=== PATIENT | female | born 1955 | race Caucasian/White ===

== ENCOUNTER 2016-11-06 08:10 | Observation (INO) | payer OTHER ==
[~2016-11-06] VITALS: Ht 167.6 cm; Wt 55.2 kg
[~2016-11-06 08:10] MED LIST: LISI10TA3 PO; NALOXONE HCL 0.4 MG/ML AMP IV PUSH PRN; SODIUM CHLORIDE 0.9% FLUSH 10 ML FLUSH IV FLUSH PRN; hydrALAZINE HCL 20 MG/ML VIAL IV PUSH PRN
[2016-11-06 08:45] VITALS: BP 175/101; PULSE 81; RESP 18; TEMP 98.1; O2SAT 100
[2016-11-06] MEDS: SODIUM CHLORIDE 0.9% FLUSH 10 ML FLUSH IV FLUSH SCH ×2 (09:00→21:24)
[2016-11-06] MEDS ORDERED: DOCUSATE SODIUM 100 MG CAP PO PRN (10:00)
[2016-11-06] MEDS ORDERED: TEMAZEPAM 15 MG CAP PO PRN (10:00)
[2016-11-06] MEDS ORDERED: cloNIDine HCL 0.1 MG TAB PO PRN (10:00)
[2016-11-06] MEDS ORDERED: LISINOPRIL 10 MG TAB PO SCH (10:00)
[2016-11-06] MEDS ORDERED: ONDANSETRON HCL 4 MG/2 ML VIAL IV PUSH PRN (10:00)
[2016-11-06] MEDS ORDERED: MAGNESIUM HYDROXIDE SUSP 30 ML CUP PO PRN (10:00)
[2016-11-06] MEDS ORDERED: ACETAMINOPHEN 325 MG TAB PO PRN (10:00)
[2016-11-06] MEDS ORDERED: CALCIUM CARBONATE 500 MG CHEWABLE TAB CHEW PRN (10:00)
[2016-11-06] MEDS ORDERED: ALPRAZolam 0.25 MG TAB PO PRN (10:45)
[2016-11-06] MEDS ORDERED: PILL SPLITTER OTHER PRN (11:15)
[2016-11-06] MEDS: NIFEdipine 30 MG SUSTAINED RELEASE TAB PO SCH (11:27)
[2016-11-06 12:00] VITALS: BP 160/89; PULSE 80; RESP 18; TEMP 97.9; O2SAT 99
--- NOTE | 2016-11-06 12:34 | HHI.HP ---
[facility] Unknown Admission Diagnosis Diagnoses: Travel History International Travel<30 Days: No Contact w/Intl Traveler <30 Da: No Traveled to Known Affected Are: No History of Present Illness This is a 61-year-old female with past medical history of hypertension who presented to the ER early this morning complaining of dizziness described as "swimming." The patient states that she has not slept well for the past 3 days. Last night she went to bed but woke up at 12 AM with a swimming sensation. She could not fall back asleep and the symptoms continued and so she presented to the ER. Her blood pressure was elevated at 211/101 and she received total of 20 mg IV hydralazine. The patient takes lisinopril for her blood pressure and states she had not missed a dose. The patient otherwise denied slurred speech, difficulty word finding, paresthesias, unilateral weakness. She denied ear ringing or hearing loss. Of note the patient states about 3 months ago she had a three-day history of difficulty word finding. She went to her primary care physician who ordered a Doppler carotid ultrasound and a head CT which were reportedly negative. She was told she had a possible TIA. The patient does not take an aspirin daily. The patient has been under a lot of stress and has anxiety and she has attributed those symptoms to her stress and anxiety. The patient does not smoke. She is physically active. Review of Systems Constitutional: DENIES: Fever, Chills Eyes: DENIES: Blurred vision, Vision loss Ears, nose, mouth, throat: DENIES: Tinnitus, Hearing loss, Throat pain, Hoarseness Respiratory: DENIES: Cough, Shortness of breath Cardiovascular: DENIES: Chest pain, Palpitations, Syncope Gastrointestinal: DENIES: Nausea, Vomiting Genitourinary: DENIES: Urinary frequency, Dysuria Musculoskeletal: DENIES: Muscle aches, Neck pain Integumentary: DENIES: Rash Neurologic: COMPLAINS OF: Speech Problems, DENIES: Abnormal gait, Headache, Localized weakness, Paresthesias, Poor Balance Psychiatric: COMPLAINS OF: Anxiety Past Family Social History Past Medical History Hypertension Allergies: Coded Allergies: Penicillins (Verified Allergy, Unknown, 11/06/16) Family History Possible history of stroke in an aunt Social History No history of tobacco use or alcohol use, she is . 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 Physical Exam Vital Signs Vital Signs Date Time Temp Pulse Resp B/P (MAP) Pulse Ox O2 Delivery O2 Flow Rate FiO2 11/06/16 08:45 98.1 81 18 175/101 (125) 100 Physical Exam GENERAL: This is a well-nourished, well-developed lean CF patient, in no apparent distress. SKIN: No rashes, ecchymoses or lesions. Cool and dry. HEAD: Atraumatic. Normocephalic. EYES: Pupils equal round and reactive. Extraocular motions intact. No scleral icterus. No injection or drainage. ENT: Throat without erythema, tonsillar hypertrophy or exudate. Uvula midline. Airway patent. NECK: Trachea midline. No JVD or lymphadenopathy. Supple, nontender, no meningeal signs. CARDIOVASCULAR: Regular rate and rhythm without murmurs, gallops, or rubs. RESPIRATORY: Clear to auscultation. Breath sounds equal bilaterally. No wheezes , rales, or rhonchi. GASTROINTESTINAL: Abdomen soft, non-tender, nondistended. No hepato-splenomegaly , or palpable masses. No guarding. MUSCULOSKELETAL: Extremities without clubbing, cyanosis, or edema. NEUROLOGICAL: Awake and alert. Cranial nerves II through XII intact. Motor and sensory grossly within normal limits. Five out of 5 muscle strength in all muscle groups. Normal speech. Imaging Left lacunar infarct Chest x-ray without acute disease EKG showed normal sinus rhythm Caprini VTE Risk Assessment Caprini VTE Risk Assessment: No/Low Risk (score <= 1) Caprini Risk Assessment Model Point Value = 1 Point Value = 2 Point Value = 3 Point Value = 5 Age 41-60 Minor surgery BMI > 25 kg/m2 Swollen legs Varicose veins or History of unexplained or recurrent spontaneous Oral contraceptives or hormone replacement Sepsis (< 1 month) Serious lung disease, including pneumonia (< 1 month) Abnormal pulmonary function Acute myocardial infarction Congestive heart failure (< 1 month) History of inflammatory bowel disease Medical patient at bed rest Age 61-74 Arthroscopic surgery Major open surgery (> 45 min) Laparoscopic surgery (> 45 min) Malignancy Confined to bed (> 72 hours) Immobilizing plaster cast Central venous access Age >= 75 History of VTE Family history of VTE Factor V Leiden Prothrombin [id number] Lupus anticoagulant Anticardiolipin antibodies Elevated serum homocysteine Heparin-induced thrombocytopenia Other congenital or acquired thrombophilia Stroke (< 1 month) Elective arthroplasty Hip, pelvis, or leg fracture Acute spinal cord injury (< 1 month) Prophylaxis Regimen Total Risk Factor Score Risk Level Prophylaxis Regimen 0-1 Low Early ambulation 2 Moderate Order ONE of the following: *Sequential Compression Device (SCD) *Heparin 5000 units SQ BID 3-4 Higher Order ONE of the following medications: *Heparin 5000 units SQ TID *Enoxaparin/Lovenox 40 mg SQ daily (WT < 150 kg, CrCl > 30 mL/min) *Enoxaparin/Lovenox 30 mg SQ daily (WT < 150 kg, CrCl > 10-29 mL/min) *Enoxaparin/Lovenox 30 mg SQ BID (WT < 150 kg, CrCl > 30 mL/min) AND/OR *Sequential Compression Device (SCD) 5 or more Highest Order ONE of the following medications: *Heparin 5000 units SQ TID (Preferred with Epidurals) *Enoxaparin/Lovenox 40 mg SQ daily (WT < 150 kg, CrCl > 30 mL/min) *Enoxaparin/Lovenox 30 mg SQ daily (WT < 150 kg, CrCl > 10-29 mL/min) *Enoxaparin/Lovenox 30 mg SQ BID (WT < 150 kg, CrCl > 30 mL/min) AND *Sequential Compression Device (SCD) Assessment and Plan Problem List: (1) Hypertensive urgency ICD Code: I16.0 - Hypertensive urgency (2) TIA (transient ischemic attack) ICD Code: G45.9 - Transient cerebral ischemic attack, unspecified Assessment and Plan -Hypertensive urgency - resolved. I will increase her lisinopril to 10 mg by mouth twice a day. -Possible TIA versus CVA [address] showing old lacunar infarct. We 'll obtain brain MRI MRA, neck MRA, Doppler carotid, Holter, 2-D echocardiogram and fasting lipid profile. Patient will need to be on at least aspirin daily. Have consulted neurology for their opinion. -Vertigo/dizziness - now resolved. -DVT prophylaxis with SCDs. Brenda,Myesha Terri MD Nov 06, 2016 12:34
[2016-11-06 16:38] LABS: HDL CHOLESTEROL 118.4 MG/DL (40.0-60.0)
[2016-11-06 16:54] VITALS: BP 154/83
[2016-11-06 17:54] VITALS: PULSE 74
[2016-11-06 20:00] VITALS: PULSE 80; PULSE 91; RESP 20; TEMP 97.1; O2SAT 98
[2016-11-06] MEDS: LISINOPRIL 10 MG TAB PO SCH (21:24)
[2016-11-06 22:27] LABS: HEMOGLOBIN A1a 1.2 %; HEMOGLOBIN A1b 1.6 %; HEMOGLOBIN Ao 84.7 %; HEMOGLOBIN LA1C 2.4 %; HEMOGLOBIN P3 4.1 %
[2016-11-07] VITALS: BP 149/89; PULSE 91; RESP 20; TEMP 97.7; O2SAT 99
[2016-11-07 04:00] VITALS: BP 144/79; PULSE 84; RESP 20; TEMP 98.5; O2SAT 98
[2016-11-07 08:00] VITALS: BP 143/89; PULSE 73; PULSE 82; RESP 20; TEMP 96.8; O2SAT 99
[2016-11-07 08:44] LABS: POTASSIUM 3.8 MEQ/L (3.5-5.1)
[2016-11-07 08:50] LABS: BICARBONATE 24.8 MEQ/L (21.0-32.0)
[2016-11-07 08:55] LABS: AUTOMATED NEUTROPHIL # 2.6 TH/MM3 (1.8-7.7); BASOPHIL % 0.4 % (0.0-2.0); EOSINOPHIL # 0.2 TH/MM3 (0-0.4); EOSINOPHIL % 2.7 % (0.0-4.0); HEMATOCRIT 43.6 % (35.0-46.0); HEMO FLAGS DIFF FINAL; LYMPH % 42.2 % (9.0-44.0); LYMPHOCYTE # 2.5 TH/MM3 (1.0-4.8); MEAN CELL VOLUME 93.5 FL (80.0-100.0); MEAN CORPUSCULAR HEMOGLOBIN 30.2 PG (27.0-34.0); MEAN CORPUSCULAR HGB CONC 32.3 % (32.0-36.0); MONO % 10.3 % (0.0-8.0); NEUT % 44.4 % (16.0-70.0); PLATELET COUNT 232 TH/MM3 (150-450); RED BLOOD COUNT 4.67 MIL/MM3 (4.00-5.30); RED CELL DISTRIBUTION WIDTH 13.1 % (11.6-17.2); WHITE BLOOD COUNT 5.9 TH/MM3 (4.0-11.0)
[2016-11-07] MEDS: NIFEdipine 30 MG SUSTAINED RELEASE TAB PO SCH (09:01)
[2016-11-07] MEDS: LISINOPRIL 10 MG TAB PO SCH (09:01)
[2016-11-07] MEDS: SODIUM CHLORIDE 0.9% FLUSH 10 ML FLUSH IV FLUSH SCH (09:01)
--- NOTE | 2016-11-07 11:28 | RADRPT ---
EXAM DATE/TIME: 11/07/2016 09:50 [facility] COMPARISON: No previous studies available for comparison. INDICATIONS : Cerebrovascular accident. MEDICAL HISTORY : Hypertension. Anxiety. Dizziness. SURGICAL HISTORY : None. ENCOUNTER: Initial ACUITY: 4-6 days PAIN SCORE: 10 LOCATION: Bilateral neck PEAK SYSTOLIC VELOCITIES (cm/sec): ICA/CCA RATIO: Right: 0.8 Left: 0.9 ICA: Right: 82.6 Left: 79.0 CCA: Right: 99.7 Left: 90.4 ECA: Right: 86.5 Left: 86.5 VERTEBRAL: Right: 59.6 antegrade Left: 67.7 antegrade Elevated flow velocities and ICA/CCA ratios have been found to correlate with increased degrees of vessel stenosis, calculated as percentage of diameter relative to a normal segment of distal ICA/CCA FINDINGS: RIGHT CAROTID: No significant stenosis is visualized. The waveforms are within normal limits. LEFT CAROTID: No significant stenosis is visualized. The waveforms are within normal limits. VERTEBRAL ARTERIES: Antegrade flow is seen in both vertebral arteries. MISCELLANEOUS: None. CONCLUSION: No evidence of hemodynamically significant carotid stenosis. Crescencio Kirkpatrick MD on November 07, 2016 at 11:26 Board Certified Radiologist. This report was verified electronically.
[2016-11-07 12:00] VITALS: BP 164/104; PULSE 72; TEMP 96.4; O2SAT 100
[2016-11-07] MEDS ORDERED: ALPRAZolam 0.25 MG TAB PO PRN (12:30)
[2016-11-07 13:47] LABS: HDL CHOLESTEROL 121.8 MG/DL (40.0-60.0)
--- NOTE | 2016-11-07 14:42 | HHI.DS ---
Discharge Summary Admission Date Nov 06, 2016 at 08:30 Discharge Date: Nov 07, 2016 Admitting Diagnosis (1) Hypertensive urgency ICD Code: I16.0 - Hypertensive urgency Diagnosis: Principal Procedures None Brief History - From Admission This is a 61-year-old female with past medical history of hypertension who presented to the ER early this morning complaining of dizziness described as "swimming." The patient states that she has not slept well for the past 3 days. Last night she went to bed but woke up at 12 AM with a swimming sensation. She could not fall back asleep and the symptoms continued and so she presented to the ER. Her blood pressure was elevated at 211/101 and she received total of 20 mg IV hydralazine. The patient takes lisinopril for her blood pressure and states she had not missed a dose. The patient otherwise denied slurred speech, difficulty word finding, paresthesias, unilateral weakness. She denied ear ringing or hearing loss. Of note the patient states about 3 months ago she had a three-day history of difficulty word finding. She went to her primary care physician who ordered a Doppler carotid ultrasound and a head CT which were reportedly negative. She was told she had a possible TIA. The patient does not take an aspirin daily. The patient has been under a lot of stress and has anxiety and she has attributed those symptoms to her stress and anxiety. The patient does not smoke. She is physically active. CBC/BMP: 11/07/16 0713 11/07/16 0713 Significant Findings Laboratory Tests Test 11/06/16 02:05 11/06/16 19:12 11/07/16 07:13 Cholesterol Level 263 MG/DL (120-200) 251 MG/DL (120-200) LDL Cholesterol 126 MG/DL (0-99) 116 MG/DL (0-99) HDL Cholesterol 118.4 MG/DL (40.0-60.0) 121.8 MG/DL (40.0-60.0) Monocytes (%) (Auto) 10.3 % (0.0-8.0) Chloride Level 108 MEQ/L (98-107) Hospital Course Mrs. Colon is a 61-year-old female. She was admitted secondary to hypertensive urgency. This was treated with her baseline lisinopril an additional clonidine by mouth dosing. Hypertensive urgency resolved overnight. She has been stable throughout today. She also complained of his symptom of a fullness in the ears and dizziness. The symptoms can be related to hypertensive urgency as well. Options for pursuing a neurological workup were discussed and patient declines these options. Blood pressures have resolved. She had returned to baseline. Medically stable for discharge to home on prior treatment (lisinopril 10 mg by mouth daily). Pt Condition on Discharge: Stable Discharge Disposition: Discharge Home Discharge Time: <= 30 minutes Discharge Instructions DIET: Follow Instructions for: As Tolerated, No Restrictions Activities you can perform: Regular-No Restrictions Follow up Referrals: PCP Follow-up - 1 Week Continued Medications: Lisinopril (Lisinopril) 10 Mg Tab 10 MG PO DAILY, TAB 0 Refills Brent Hodges MD Nov 07, 2016 14:42
[2016-11-15] MEDS ORDERED: CLON0.1T PO (18:48)
[2016-12-03] MEDS ORDERED: HYDR12.57 PO (12:58)
[2016-12-03] MEDS ORDERED: BUSP5TAB PO (12:58)
[2016-12-03] MEDS ORDERED: AMLO10TA2 PO (12:58)
[2016-12-03] MEDS ORDERED: LISI2.5T3 PO (12:58)
== END 2016-11-07 19:10 | disposition home or self-care (01) ==
LOC: PHEDDLT 08:10 → PH5A 08:30
PROVIDERS: ADMIT Hospitalist; ATTEND Hospitalist
DX: I16.0 Hypertensive urgency (principal); I10 Essential (primary) hypertension; F41.8 Other specified anxiety disorders
CPT/HCPCS: 70450; 71010; 80048; 80053; 80061; 82948; 83036; 84484; 85025; 85610; 93005; 93880; 96374; 96376; 97165; 99285; G0378; G8987; G8988; G8989; J0360

== ENCOUNTER 2016-12-03 20:44 | Observation (INO) | payer OTHER ==
[~2016-12-03 20:44] MED LIST changes: +ACETAMINOPHEN 325 MG TAB PO PRN; +AMLO10TA2 PO; +BUSP5TAB PO; +CLON0.1T PO; +HYDR12.57 PO; +LISI2.5T3 PO; +ONDANSETRON HCL 4 MG/2 ML VIAL IVP PRN; -hydrALAZINE HCL 20 MG/ML VIAL IV PUSH PRN
[2016-12-03 20:45] VITALS: BP 189/88; PULSE 55; RESP 20; TEMP 96.4; O2SAT 99
[2016-12-03 21:15] VITALS: PULSE 57
[2016-12-03] MEDS: ENALAPRILAT 2.5 MG/2 ML VIAL IV PUSH PRN (21:22)
[2016-12-03] MEDS: DOCUSATE SODIUM 50 MG/SENNA 8.6 MG TAB PO SCH (21:23)
[2016-12-03] MEDS: busPIRone HCL 5 MG TAB PO SCH (21:23)
[2016-12-03] MEDS: SODIUM CHLORIDE 0.9% FLUSH 10 ML FLUSH IV FLUSH SCH (21:23)
[2016-12-03] MEDS: SODIUM CHLOR 0.9% 1000 ML INJ 1,000 ML IV SCH (21:33)
--- NOTE | 2016-12-03 22:20 | EKG ---
Date Performed: 12/03/2016 Time Performed: 21:09:28 PTAGE: 61 years EKG: SINUS BRADYCARDIA BORDERLINE ECG PREVIOUS TRACING : 12/03/2016 01.11 Compared to prior tracing no significant change DOCTOR: Vanessa Epstein Interpretating Date/Time 12/03/2016 22:19:27
[2016-12-04] VITALS (8 sets, daily range): BP systolic 137–187; BP diastolic 70–84; PULSE 58–73; RESP 16–20; TEMP 96.4–98; O2SAT 94–99
[2016-12-04] MEDS: SODIUM CHLOR 0.9% 1000 ML INJ 1,000 ML IV SCH ×2 (07:04→16:46)
[2016-12-04 07:44] LABS: AUTOMATED NEUTROPHIL # 2.4 TH/MM3 (1.8-7.7); BASOPHIL % 0.3 % (0.0-2.0); EOSINOPHIL # 0.1 TH/MM3 (0-0.4); EOSINOPHIL % 2.3 % (0.0-4.0); HEMATOCRIT 42.5 % (35.0-46.0); HEMO FLAGS DIFF FINAL; LYMPH % 46.2 % (9.0-44.0); LYMPHOCYTE # 2.8 TH/MM3 (1.0-4.8); MEAN CELL VOLUME 92.2 FL (80.0-100.0); MEAN CORPUSCULAR HEMOGLOBIN 30.6 PG (27.0-34.0); MEAN CORPUSCULAR HGB CONC 33.2 % (32.0-36.0); MONO % 11.4 % (0.0-8.0); NEUT % 39.8 % (16.0-70.0); PLATELET COUNT 195 TH/MM3 (150-450); RED BLOOD COUNT 4.61 MIL/MM3 (4.00-5.30); RED CELL DISTRIBUTION WIDTH 12.2 % (11.6-17.2)
[2016-12-04 07:51] LABS: CHLORIDE 105 MEQ/L (98-107); POTASSIUM 4.1 MEQ/L (3.5-5.1); SODIUM (NA) 140 MEQ/L (136-145)
[2016-12-04 07:55] LABS: ANION GAP 7 MEQ/L (5-15); BICARBONATE 28.1 MEQ/L (21.0-32.0)
[2016-12-04 07:56] LABS: BLOOD UREA NITROGEN 14 MG/DL (7-18)
[2016-12-04] MEDS: SODIUM CHLORIDE 0.9% FLUSH 10 ML FLUSH IV FLUSH SCH ×2 (07:57→20:21)
[2016-12-04 07:58] LABS: ALT (GPT) 22 U/L (10-53)
[2016-12-04 07:59] LABS: AST (GOT) 20 U/L (15-37); GLOMERULAR FILTRATION RATE 78 ML/MIN (>89)
[2016-12-04 08:00] LABS: TOTAL BILIRUBIN ADULT 0.4 MG/DL (0.2-1.0)
[2016-12-04 08:01] LABS: ALKALINE PHOSPHATASE 92 U/L (45-117)
[2016-12-04] MEDS: busPIRone HCL 5 MG TAB PO SCH ×2 (08:05→20:21)
[2016-12-04] MEDS: DOCUSATE SODIUM 50 MG/SENNA 8.6 MG TAB PO SCH ×2 (08:06→20:22)
--- NOTE | 2016-12-04 09:56 | HHI.HP ---
HPI Service [facility] Primary Care Physician Venkatesh Vilchis M.D. Admission Diagnosis Diagnoses: Chief Complaint: Difficulty speaking Travel History International Travel<30 Days: No Contact w/Intl Traveler <30 Da: No Traveled to Known Affected Are: No History of Present Illness The patient is a 61-year-old female with a past medical history of hypertension who is presenting to the hospital with speech difficulties. The patient said that she was walking 2-1/2 miles when all of a sudden she had difficulty saying the words she wanted to say. She says that she knew what she wanted to say but what came out of her mouth was completely different. She says the sensation lasted about 3 minutes. She says the same problem has happened in October and again back in March. She said she was told in March that it could be from PTSD as her symptoms were related to her 's illness at that time. She was going to have a neurological workup last month but declined that. She did follow-up with a coding clerk to change some of her blood pressure medications. She says she has been taking her lisinopril, her water pill and amlodipine. She has been checking her blood pressure regularly at home and her systolic has been in the 190s consistently. She has been endorsing a sensation in her head that feels like a pulsating behind her eyes. She also has been experiencing palpitations. She denies any lower extremity swelling. Review of Systems Except as stated in HPI: all other systems reviewed are Neg Past Family Social History Past Medical History HTN Aphasia Allergies: Coded Allergies: Penicillins (Verified Allergy, Unknown, 12/03/16) Active Ordered Medications Current Medications Medications (Trade) Dose Ordered Sig/[place] Route Start Time Stop Time Status Last Admin (Buspar) 5 mg BID PO 12/03/16 22:00 12/04/16 08:05 Sodium Chloride 1,000 ml @ 75 mls/hr [id number] IV 12/03/16 17:44 12/03/16 21:33 (NS Flush) 2 ml UNSCH PRN IV FLUSH 12/03/16 17:45 (NS Flush) 2 ml BID IV FLUSH 12/03/16 21:00 12/04/16 07:57 (Tylenol) 650 mg Q4H PRN PO 12/03/16 17:45 (Zofran Inj) 4 mg Q6H PRN IVP 12/03/16 17:45 (Tylenol) 650 mg Q6H PRN PO 12/03/16 17:45 (Narcan Inj) 0.4 mg UNSCH PRN IV PUSH 12/03/16 17:45 (Kathy-Colace) 1 tab BID PO 12/03/16 21:00 12/03/16 21:23 (Vasotec Inj) 2.5 mg Q6H PRN IV PUSH 12/03/16 18:00 12/03/16 21:22 Family History Her sister had an aneurysm Her mother had chronic kidney disease/diabetes/CAD Social History The patient does not smoke or drink Physical Exam Vital Signs Vital Signs Date Time Temp Pulse Resp B/P (MAP) Pulse Ox O2 Delivery O2 Flow Rate FiO2 12/04/16 08:00 97.4 68 16 174/82 (112) 94 12/04/16 04:00 98.0 66 20 155/80 (105) 98 12/04/16 00:00 96.7 64 20 137/70 (92) 97 12/03/16 21:15 57 12/03/16 20:45 96.4 55 20 189/88 (121) 99 Physical Exam GENERAL: No acute distress. SKIN: Focused skin assessment warm/dry. HEAD: Atraumatic. Normocephalic. EYES: Pupils equal and round. No scleral icterus. No injection or drainage. ENT: No nasal bleeding or discharge. Mucous membranes pink and moist. NECK: Trachea midline. No JVD. CARDIOVASCULAR: Regular rate and rhythm. No murmur appreciated. RESPIRATORY: No accessory muscle use. Clear to auscultation. Breath sounds equal bilaterally. GASTROINTESTINAL: Abdomen soft, non-tender, nondistended. Hepatic and splenic margins not palpable. MUSCULOSKELETAL: No obvious deformities. No clubbing. No cyanosis. No edema. NEUROLOGICAL: Awake and alert. No obvious cranial nerve deficits. Motor grossly within normal limits. Normal speech. PSYCHIATRIC: Appropriate mood and affect; insight and judgment normal. Laboratory Laboratory Tests Test 12/03/16 21:00 12/03/16 23:50 12/04/16 07:10 Troponin I LESS THAN 0.02 LESS THAN 0.02 White Blood Count 6.0 Red Blood Count 4.61 Hemoglobin 14.1 Hematocrit 42.5 Mean Corpuscular Volume 92.2 Mean Corpuscular Hemoglobin 30.6 Mean Corpuscular Hemoglobin Concent 33.2 Red Cell Distribution Width 12.2 Platelet Count 195 Mean Platelet Volume 10.9 Neutrophils (%) (Auto) 39.8 Lymphocytes (%) (Auto) 46.2 Monocytes (%) (Auto) 11.4 Eosinophils (%) (Auto) 2.3 Basophils (%) (Auto) 0.3 Neutrophils # (Auto) 2.4 Lymphocytes # (Auto) 2.8 Monocytes # (Auto) 0.7 Eosinophils # (Auto) 0.1 Basophils # (Auto) 0.0 CBC Comment DIFF FINAL Differential Comment Blood Urea Nitrogen 14 Creatinine 0.75 Random Glucose 81 Total Protein 7.5 Albumin 3.9 Calcium Level 9.2 Alkaline Phosphatase 92 Aspartate Amino Transf (AST/SGOT) 20 Alanine Aminotransferase (ALT/SGPT) 22 Total Bilirubin 0.4 Sodium Level 140 Potassium Level 4.1 Chloride Level 105 Carbon Dioxide Level 28.1 Anion Gap 7 Estimat Glomerular Filtration Rate 78 Result Diagram: 12/04/1670912/04/16709 Caprini VTE Risk Assessment Caprini VTE Risk Assessment: Mod/High Risk (score >= 2) Caprini Risk Assessment Model Point Value = 1 Point Value = 2 Point Value = 3 Point Value = 5 Age 41-60 Minor surgery BMI > 25 kg/m2 Swollen legs Varicose veins or History of unexplained or recurrent spontaneous Oral contraceptives or hormone replacement Sepsis (< 1 month) Serious lung disease, including pneumonia (< 1 month) Abnormal pulmonary function Acute myocardial infarction Congestive heart failure (< 1 month) History of inflammatory bowel disease Medical patient at bed rest Age 61-74 Arthroscopic surgery Major open surgery (> 45 min) Laparoscopic surgery (> 45 min) Malignancy Confined to bed (> 72 hours) Immobilizing plaster cast Central venous access Age >= 75 History of VTE Family history of VTE Factor V Leiden Prothrombin [id number] Lupus anticoagulant Anticardiolipin antibodies Elevated serum homocysteine Heparin-induced thrombocytopenia Other congenital or acquired thrombophilia Stroke (< 1 month) Elective arthroplasty Hip, pelvis, or leg fracture Acute spinal cord injury (< 1 month) Prophylaxis Regimen Total Risk Factor Score Risk Level Prophylaxis Regimen 0-1 Low Early ambulation 2 Moderate Order ONE of the following: *Sequential Compression Device (SCD) *Heparin 5000 units SQ BID 3-4 Higher Order ONE of the following medications: *Heparin 5000 units SQ TID *Enoxaparin/Lovenox 40 mg SQ daily (WT < 150 kg, CrCl > 30 mL/min) *Enoxaparin/Lovenox 30 mg SQ daily (WT < 150 kg, CrCl > 10-29 mL/min) *Enoxaparin/Lovenox 30 mg SQ BID (WT < 150 kg, CrCl > 30 mL/min) AND/OR *Sequential Compression Device (SCD) 5 or more Highest Order ONE of the following medications: *Heparin 5000 units SQ TID (Preferred with Epidurals) *Enoxaparin/Lovenox 40 mg SQ daily (WT < 150 kg, CrCl > 30 mL/min) *Enoxaparin/Lovenox 30 mg SQ daily (WT < 150 kg, CrCl > 10-29 mL/min) *Enoxaparin/Lovenox 30 mg SQ BID (WT < 150 kg, CrCl > 30 mL/min) AND *Sequential Compression Device (SCD) Assessment and Plan Assessment and Plan Hypertensive urgency/ aphasia This is the third bout of's paste difficulties the patient has had over the past year. She said it has always been associated with a high blood pressure. She had a normal carotid duplex last month. Her blood pressure has been high at home despite being on 3 medications including lisinopril, her chlorothiazide and amlodipine. She has been following with a coding clerk. She says she has a sister with a history of aneurysm. EKG with sinus bradycardia. CT of the brain with stable findings. - Brain MRI/MRA pending. - Neurology consult pending. - Echocardiogram ordered. - Permissive hypertension for now. Resume blood pressure regimen in the morning. - The patient says her coding clerk is scheduling a stress test and evaluation for renal artery stenosis as an outpatient. - Monitor on telemetry. - Continue IV fluids. PPx: SCDs Discussed Condition With Pt, ER physician Janusz Dubose DO Dec 04, 2016 09:56
--- NOTE | 2016-12-04 15:33 | RADRPT ---
EXAM DATE/TIME: 12/04/2016 14:02 [facility] COMPARISON: MRI BRAIN W/O CONTRAST, December 04, 2016, 14:02. INDICATIONS : Slurred speech. MEDICAL HISTORY : Hypertension. SURGICAL HISTORY : None. ENCOUNTER: Initial ACUITY: 2 day PAIN SCORE: 0/10 LOCATION: head Please note a normal MRA of the brain does not entirely exclude the possibility of a small aneurysm, nor the possibility of distal intracranial vessel disease. TECHNIQUE: 3D time of flight MRA was performed. Source images, multiplanar STS MIP, and 3D volume MIP reconstru ctions were reviewed. FINDINGS: Anterior circulation: Distal intracranial internal carotid arteries are patent with flow extending to the middle and anteri or cerebral arteries. There is no evidence for aneurysm, vessel truncation or stenosis, and no eviden ce for vascular malformation. Posterior circulation: Symmetric distal vertebral arteries with flow extending to basilar artery. There is no evidence for aneurysm, vessel truncation or stenosis, and no evidence for vascular malformation. CONCLUSION: 1. Unremarkable MRA examination of the brain. Specifically, no evidence for large vessel occlusion. Kerwin Mitchell MD on December 04, 2016 at 15:27 Board Certified Radiologist. This report was verified electronically.
--- NOTE | 2016-12-04 15:38 | RADRPT ---
EXAM DATE/TIME: 12/04/2016 14:02 [facility] COMPARISON: CT BRAIN W/O CONTRAST, December 03, 2016, 13:35. INDICATIONS : Slurred speech. MEDICAL HISTORY : Hypertension. SURGICAL HISTORY : None. ENCOUNTER: Initial ACUITY: 2 day PAIN SCORE: 0/10 LOCATION: head TECHNIQUE: Multiplanar, multisequence MRI of the brain was performed without contrast. FINDINGS: CEREBRUM: The ventricles are normal for age. No evidence of midline shift, mass lesion, hemorrhage or acute in farction. No extraaxial fluid collections are seen. The pituitary gland and suprasellar cistern are normal in configuration. WHITE MATTER: Extensive periventricular and scattered diffuse bilateral white matter T2 prolongation. Prominent T2 prolongation corresponding to region of the left centrum semiovale. POSTERIOR FOSSA: The cerebellum and brainstem are intact. The 4th ventricle is midline. The cerebellopontine angle is unremarkable. The cerebellar tonsils are normal in position. DIFFUSION IMAGING: No focal areas of restricted diffusion are seen. No evidence of acute infarction. EXTRACRANIAL: The visualized portions of the orbits and paranasal sinuses are unremarkable. CONCLUSION: 1. No restricted diffusion to suggest acute infarction as questioned. 2. Extensive periventricular and deep white matter T2 hyperintensities without associated restricted diffusion. Overall pattern is consistent with extensive small vessel ischemic white matter demyelinat ion. Kerwin Mitchell MD on December 04, 2016 at 15:31 Board Certified Radiologist. This report was verified electronically.
[2016-12-04] MEDS: ENALAPRILAT 2.5 MG/2 ML VIAL IV PUSH PRN (20:21)
--- NOTE | 2016-12-04 20:51 | ECHRPT ---
Indication: CVA/TIA CONCLUSIONS Normal left ventricular size. Wall thickness is normal. The left ventricular systolic function is normal (EF 60%) Aortic valve sclerosis. There is mild tricuspid valve regurgitation. The estimated pulmonary arterial pressure is 34 mmHg. BP: 155 / 80 HR: Rhythm: Sinus MEASUREMENTS (Male / Female) Normal Values Technical Quality:Fair 2D ECHO LV Diastolic Diameter PLAX 4.2 cm 4.2 - 5.9 / 3.9 - 5.3 cm LV Systolic Diameter PLAX 2.6 cm IVS Diastolic Thickness 0.7 cm 0.6 - 1.0 / 0.6 - 0.9 cm LVPW Diastolic Thickness 0.7 cm 0.6 - 1.0 / 0.6 - 0.9 cm LV Relative Wall Thickness 0.3 LVOT Diameter 2.0 cm Aortic Root Diameter 2.6 cm LA Systolic Diameter LX 2.4 cm 3.0 - 4.0 / 2.7 - 3.8 cm M-MODE AV Cusp Separation MM 1.9 cm DOPPLER AV Peak Velocity 117.0 cm/s AV Peak Gradient 5.5 mmHg AV Mean Gradient 3.0 mmHg AV Velocity Time Integral 21.4 cm LVOT Peak Velocity 71.4 cm/s LVOT Peak Gradient 2.0 mmHg LVOT Velocity Time Integral 11.4 cm AV Area Cont Eq vti 1.7 cm AV Area Cont Eq pk 1.9 cm Mitral E Point Velocity 88.4 cm/s Mitral A Point Velocity 61.2 cm/s Mitral E to A Ratio 1.4 LV E' Lateral Velocity 12.6 cm/s Mitral E to LV E' Lateral Ratio 7.0 LV E' Septal Velocity 5.8 cm/s Mitral E to LV E' Septal Ratio 15.4 TR Peak Velocity 246.0 cm/s TR Peak Gradient 24.2 mmHg Right Atrial Pressure 10.0 mmHg Pulmonary Artery Systolic Pressu 34.2 mmHg Right Ventricular Systolic Press 34.2 mmHg PV Peak Velocity 80.5 cm/s PV Peak Gradient 2.6 mmHg FINDINGS LEFT VENTRICLE Normal left ventricular size. Wall thickness is normal. The left ventricular systolic function is normal (EF 60%). TRICUSPID VALVE There is mild tricuspid valve regurgitation. The estimated pulmonary arterial pressure is 34.2 mmHg. Vanessa Epstein MD, FACC (Electronically Signed) Final Date:04 December 2016 20:50
--- NOTE | 2016-12-04 21:23 | EKG ---
Date Performed: 12/04/2016 Time Performed: 00:02:07 PTAGE: 61 years EKG: SINUS BRADYCARDIA LEFT ATRIAL ENLARGEMENT MODERATE ST DEPRESSION ABNORMAL ECG PREVIOUS TRACING : 12/03/2016 21.09 Compared to prior tracing no significant change DOCTOR: Vanessa Epstein Interpretating Date/Time 12/04/2016 21:23:26
--- NOTE | 2016-12-04 22:56 | MB ---
cc: LUPE MIGUEL M.D. DATE OF CONSULTATION 12/04/16 HISTORY OF PRESENT ILLNESS She is a 61-year-old woman seen in neurological consultation with history of recurrent neurological symptoms. She describes that in March she had tearful episodes in the same week. She was under stress at that time. She had a brief difficulty with expressive language. In October she apparently had some blood pressure issues and she has had some palpitations. Yesterday she was walking when she was listening to some musical radio and seemed to be bothered by some humming noise and she then spoke something to herself and the words were non-comprehensible. She tried it several times and she could not comprehend the words she spoke. She was by herself. She kept on walking and she had no problems with strength. She got in the car and drove herself to the emergency room. She has been taking lisinopril and amlodipine for blood pressure. She only rarely takes aspirin for pain. She admits a carotid ultrasound back in March and also recently that was unremarkable. NEURO EXAMINATION The neurological exam was quite normal. Specifically, normal language functions. Ocular movements and visual lock full. Normal strength throughout. Reflexes 2+ and plantar responses were flexor. CARDIOLOGY STUDIES EKG showed sinus bradycardia. IMAGING STUDIES MRI brain shows extensive ischemic demyelination type of findings. MRA head was normal. LABORATORY DATA Chemistry is normal as well as the CBC where there are minimal findings. ASSESSMENT Presumed TIA is causing expressive aphasia. It is unusual the lack of other findings such as motor deficits. She admits the carotid ultrasound being unremarkable on a couple of occasions but I will ask for an MRA neck. Check a lipid profile. Start daily aspirin. Echocardiogram. May need cardiac monitoring for an extended period of time as outpatient. Thank you for asking us to assist in her care. Lupe Miguel MD OFC/EO /6:44 PM /10:43 PM
[2016-12-04 23:32] LABS: HDL CHOLESTEROL 94.6 MG/DL (40.0-60.0)
[2016-12-05] VITALS: BP 137/77; PULSE 58; RESP 18; TEMP 96.5; O2SAT 98
[2016-12-05 04:00] VITALS: BP 152/80; PULSE 51; RESP 17; TEMP 96.1; O2SAT 100
[2016-12-05] MEDS: SODIUM CHLOR 0.9% 1000 ML INJ 1,000 ML IV SCH (04:26)
[2016-12-05 08:00] VITALS: BP 155/89; PULSE 47; PULSE 62; RESP 16; TEMP 96.9; O2SAT 99
[2016-12-05] MEDS: busPIRone HCL 5 MG TAB PO SCH (08:03)
[2016-12-05] MEDS: DOCUSATE SODIUM 50 MG/SENNA 8.6 MG TAB PO SCH (08:04)
[2016-12-05] MEDS: SODIUM CHLORIDE 0.9% FLUSH 10 ML FLUSH IV FLUSH SCH (08:04)
[2016-12-05] MEDS ORDERED: ATORVASTATIN 40 MG TAB PO SCH (09:00)
[2016-12-05] MEDS ORDERED: ASPIRIN EC 81 MG TABEC PO SCH (09:00)
[2016-12-05] MEDS ORDERED: LISINOPRIL 10 MG TAB PO SCH (09:00)
[2016-12-05] MEDS ORDERED: ASPI-99 PO (09:24)
[2016-12-05] MEDS ORDERED: LISI10TA3 PO (09:24)
[2016-12-05] MEDS ORDERED: ATOR40TA16 PO (09:24)
[2016-12-05] MEDS ORDERED: AMLO10 PO (09:24)
[2016-12-05] MEDS ORDERED: CLON0.1T PO (09:25)
--- NOTE | 2016-12-05 09:26 | HHI.DCPOC ---
Discharge Care Plan Diagnosis: (1) Hypertensive urgency (2) TIA (transient ischemic attack) Goals to Promote Your Health * To prevent worsening of your condition and complications * To maintain your health at the optimal level Directions to Meet Your Goals Take your medications as prescribed Follow your dietary instruction Follow activity as directed Keep your appointments as scheduled Take your immunizations and boosters as scheduled If your symptoms worsen call your PCP, if no PCP go to Urgent Care Center or Emergency Room Smoking is Dangerous to Your Health. Avoid second hand smoke Call the 24-hour hour crisis hotline for domestic abuse at Janusz Dubose DO Dec 05, 2016 09:26
[2016-12-05] MEDS ORDERED: HYDR-3798 PO (09:34)
--- NOTE | 2016-12-05 09:43 | HHI.PR ---
Subjective Remarks The patient was anxious about her blood pressure becoming out of control when she leaves the hospital. She says she has a stressful photo shoot tomorrow. She does want to leave the hospital. She had no other acute complaints. Discussed with nursing. Objective Vitals Vital Signs Date Time Temp Pulse Resp B/P (MAP) Pulse Ox O2 Delivery O2 Flow Rate FiO2 12/05/16 08:00 47 12/05/16 04:00 96.1 51 17 152/80 (104) 100 12/05/16 00:00 96.5 58 18 137/77 (97) 98 12/04/16 20:30 73 12/04/16 20:00 96.4 71 16 187/84 (118) 98 12/04/16 16:00 97.5 63 16 163/82 (109) 99 12/04/16 12:00 97.5 58 16 156/79 (104) 98 12/04/16 11:16 60 I/O 12/04/16 12/04/16 12/04/16 12/05/16 12/05/16 12/05/16 07:00 15:00 23:00 07:00 15:00 23:00 Intake Total 850 ml 480 ml 1600 ml 324 ml Balance 850 ml 480 ml 1600 ml 324 ml Intake Oral 240 ml 480 ml IV Total 610 ml 1600 ml 324 ml # Voids 2 3 1 Result Diagram: 12/04/16 0710 12/04/16 0710 Imaging Last Impressions Head Magnetic Resonance Angiography 12/04/16 0000 Signed Impressions: Service Date/Time: Sunday, December 04, 2016 14:02 - CONCLUSION: 1. Unremarkable MRA examination of the brain. Specifically, no evidence for large vessel occlusion. Kerwin Mitchell MD Brain MRI 12/04/16 0000 Signed Impressions: Service Date/Time: Sunday, December 04, 2016 14:02 - CONCLUSION: 1. No restricted diffusion to suggest acute infarction as questioned. 2. Extensive periventricular and deep white matter T2 hyperintensities without associated restricted diffusion. Overall pattern is consistent with extensive small vessel ischemic white matter demyelination. Kerwin Mitchell MD Objective Remarks GENERAL: No acute distress. SKIN: Focused skin assessment warm/dry. HEAD: Atraumatic. Normocephalic. EYES: Pupils equal and round. No scleral icterus. No injection or drainage. ENT: No nasal bleeding or discharge. Mucous membranes pink and moist. NECK: Trachea midline. No JVD. CARDIOVASCULAR: Regular rate and rhythm. No murmur appreciated. RESPIRATORY: No accessory muscle use. Clear to auscultation. Breath sounds equal bilaterally. GASTROINTESTINAL: Abdomen soft, non-tender, nondistended. Hepatic and splenic margins not palpable. MUSCULOSKELETAL: No obvious deformities. No clubbing. No cyanosis. No edema. NEUROLOGICAL: Awake and alert. No obvious cranial nerve deficits. Motor grossly within normal limits. Normal speech. PSYCHIATRIC: Appropriate mood and affect; insight and judgment normal. Medications and IVs Current Medications Medications (Trade) Dose Ordered Sig/[place] Route Start Time Stop Time Status Last Admin (Buspar) 5 mg BID PO 12/03/16 22:00 12/05/16 08:03 (NS Flush) 2 ml UNSCH PRN IV FLUSH 12/03/16 17:45 (NS Flush) 2 ml BID IV FLUSH 12/03/16 21:00 12/04/16 20:21 (Tylenol) 650 mg Q4H PRN PO 12/03/16 17:45 (Zofran Inj) 4 mg Q6H PRN IVP 12/03/16 17:45 (Tylenol) 650 mg Q6H PRN PO 12/03/16 17:45 (Narcan Inj) 0.4 mg UNSCH PRN IV PUSH 12/03/16 17:45 (Kathy-Colace) 1 tab BID PO 12/03/16 21:00 12/03/16 21:23 (Vasotec Inj) 2.5 mg Q6H PRN IV PUSH 12/03/16 18:00 12/04/16 20:21 (Norvasc) 10 mg DAILY PO 12/05/16 09:00 (Prinivil) 10 mg DAILY PO 12/05/16 09:00 (Lipitor) 40 mg DAILY PO 12/05/16 09:00 (Ecotrin Ec) 81 mg DAILY PO 12/05/16 09:00 A/P Assessment and Plan Hypertensive urgency/ aphasia This is the third bout of's paste difficulties the patient has had over the past year. She said it has always been associated with a high blood pressure. She had a normal carotid duplex last month. Her blood pressure has been high at home despite being on 3 medications including lisinopril, her chlorothiazide and amlodipine. She has been following with a wheel truing machine tender. She says she has a sister with a history of aneurysm. EKG with sinus bradycardia. CT of the brain with stable findings. MRI showed: No restricted diffusion to suggest acute infarction as questioned; Extensive periventricular and deep white matter T2 hyperintensities without associated restricted diffusion; Overall pattern is consistent with extensive small vessel ischemic white matter demyelination. MRA unremarkable. Neurology consult appreciated. Echo with EF 60%. EKG with sinus bradycardia. - MRA carotids pending. - Neurology follow-up. - increase amlodipine to 10 mg daily. Increase lisinopril to 20 mg BID. Add hydralazine as needed. - The patient says her wheel truing machine tender is scheduling a stress test and evaluation for renal artery stenosis as an outpatient. - Monitor on telemetry. Repeat EKG. PPx: SCDs Discharge Planning D/c home after carotid MRA completed Janusz Dubose DO Dec 05, 2016 09:43
[2016-12-05] MEDS ORDERED: GADODIAMIDE PF 287 MG/ML 20 ML VIAL (for RAD MRI) IVCONTRAST ONE (10:00)
--- NOTE | 2016-12-05 11:57 | RADRPT ---
EXAM DATE/TIME: 12/05/2016 10:19 [facility] COMPARISON: No previous studies available for comparison. INDICATIONS : TIA. CONTRAST: 20 cc Omniscan (gadodiamide) IV MEDICAL HISTORY : Hypertension. SURGICAL HISTORY : None. ENCOUNTER: Subsequent ACUITY: 1 day PAIN SCORE: 0/10 LOCATION: neck. Percent stenosis is calculated using the diameter of the stenotic region over the diameter of the nor mal distal internal carotid artery. TECHNIQUE: Bolus infused MRA of the extracranial circulation was performed using a neurovascular coil. Post pro cessing was performed including rotating subvolume maximum intensity projections of each carotid vonnie ry, rotating full volume maximum intensity projections of both carotid arteries, sagittal and coronal sliding thin slab reformations of each carotid artery, and left oblique sliding thin slab reformatio n through the aortic arch to include the origin of the arch branch vessels. FINDINGS: AORTIC ARCH: There is a three vessel origin of the great vessels from the aorta. No evidence of ostial narrowing. RIGHT CAROTID: The common carotid artery is intact. The carotid bulb has a normal configuration without ulceration or narrowing. The internal carotid artery lumen is smooth without stenosis. The external carotid ar shannon is intact. LEFT CAROTID: The common carotid artery is intact. The carotid bulb has a normal configuration without ulceration or narrowing. The internal carotid artery lumen is smooth without stenosis. The external carotid ar shannon is intact. VERTEBRALS: The vertebral arteries have a symmetric diameter. No stenotic lesions are seen. CONCLUSION: 1. Unremarkable carotid MRA examination. No significant flow-limiting stenosis. Kerwin iMtchell MD on December 05, 2016 at 11:48 Board Certified Radiologist. This report was verified electronically.
--- NOTE | 2016-12-05 23:39 | EKG ---
Date Performed: 12/05/2016 Time Performed: 10:20:02 PTAGE: 61 years EKG: Sinus rhythm NONSPECIFIC T-WAVE ABNORMALITY BORDERLINE ECG PREVIOUS TRACING : 12/04/2016 00.02 Compared to the previous tracing ST/T wave changes are less prominent DOCTOR: Jan Thompson Interpretating Date/Time 12/05/2016 23:37:06
== END 2016-12-05 13:15 | disposition home or self-care (01) ==
LOC: PHEDDLT 20:44 → PH3A 20:45
PROVIDERS: ADMIT Hospitalist; ATTEND Hospitalist
DX: I16.0 Hypertensive urgency (principal); G45.9 Transient cerebral ischemic attack, unspecified; I10 Essential (primary) hypertension; R00.1 Bradycardia, unspecified; Z79.899 Other long term (current) drug therapy; Z79.82 Long term (current) use of aspirin
CPT/HCPCS: 70450; 70544; 70548; 70551; 80053; 80061; 84484; 85025; 85610; 85730; 93005; 93306; 96361; 96374; 96376; 99285; A9579; G0378; J7030